=== PATIENT | female | born 1980 | race Caucasian/White ===

== ENCOUNTER 2018-01-01 02:21 | Emergency (ER) | payer SELFPAY ==
--- OUTSIDE RECORDS SUMMARY | 2018-01-01 02:23 | XMS REPORT ---
:1980 [facility] Address [address] [place] [address] [place] [id number] Care Team Providers Name Role Phone MS ELLIOT ASCENCIO Unavailable Unavailable Problems This patient has no known problems. Allergies, Adverse Reactions, Alerts This patient has no known allergies or adverse reactions. Medications This patient has no known medications. Encounters Start End Encounter Admission Attending Care Care Encounter Date/Time Date/Time Type Type Clinicians Facility Department ID 2017-08-03 2017-08-03 Anjelica E THAI ASCENCIO [facility] [id number] 18:21:00 19:21:00 ELLIOT
[2018-01-01] MEDS ORDERED: IBUPROFEN 400 MG TAB ONE (03:16)
[2018-01-01] MEDS ORDERED: LORAZEPAM 1 MG TABLET ONE (03:16)
--- NOTE | 2018-01-01 03:28 | EDPHYS ---
Physician Documentation [facility] Name: Sandhya Elder Age: 37 yrs Sex: Female : 1980 Arrival Date: 01/01/2018 Time: :23 Bed 18 Private MD: ED Physician Jackeline Carrion HPI: 01/01 03:03 This 37 yrs old Female presents to ER via Ambulatory with complaints of ma2 Shoulder Pain, Anxiety. 03:03 The patient or guardian complains of pain. left shoulder and left trapezius. Context: ma2 The problem was sustained at home. Onset: The symptoms/episode began/occurred gradually, 2 day(s) ago. Modifying factors: the symptoms are alleviated by nothing. The symptoms are aggravated by movement. Associated signs and symptoms: Pertinent negatives: abdominal pain, chest pain, diaphoresis, dyspnea. Severity of symptoms: At their worst the symptoms were moderate. 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 - Social history:: Smoking status: Patient/guardian denies using tobacco, Patient/guardian denies using alcohol, street drugs, The patient lives with family. - Ebola Screening: : No symptoms or risks identified at this time. - Family history:: not pertinent, pertinent for. - Hospitalizations: : No recent hospitalization is reported. ROS: 03:03 Constitutional: Negative for fever, chills, and weight loss. ma2 03:03 MS/extremity: Positive for pain, Negative for acute changes, injury or acute deformity, bite, contusion, puncture, swelling, tenderness. 03:03 All other systems are negative. Exam: 03:03 Constitutional: This is a well developed, well nourished patient who is awake, alert, ma2 and in no acute distress. Chest/axilla: Normal chest wall appearance and motion. Nontender with no deformity. No lesions are appreciated. Cardiovascular: Regular rate and rhythm with a normal S1 and S2. No gallops, murmurs, or rubs. Normal PMI, no JVD. No pulse deficits. Respiratory: Lungs have equal breath sounds bilaterally, clear to auscultation and percussion. No rales, rhonchi or wheezes noted. No increased work of breathing, no retractions or nasal flaring. Abdomen/GI: Soft, non-tender, with normal bowel sounds. No distension or tympany. No guarding or rebound. No evidence of tenderness throughout. 03:03 Musculoskeletal/extremity: tenderness over suprascapularis on left . Vital Signs: 02:45 BP 173 / 111; Pulse 76; Resp 18 S; Temp 98.1(O); Pulse Ox 100% on R/A; Weight 82.1 kg bb (R); Height 5 ft. 4 in. (162.56 cm) (R); Pain 7/10; 03:20 BP 168 / 109; Pulse 75; Resp 17 S; Pulse Ox 100% on R/A; cc3 02:45 Body Mass Index 31.07 (82.10 kg, 162.56 cm) bb MDM: 02:30 Patient medically screened. ma2 03:03 Differential diagnosis: DJD, tendonitis, msk pain. ma2 03:26 Data reviewed: vital signs, nurses notes, [facility] records, EKG. Counseling: I had ma2 a detailed discussion with the patient and/or guardian regarding: the historical points, exam findings, and any diagnostic results supporting the discharge/admit diagnosis, the presence of at least one elevated blood pressure reading (>120/80) during this emergency department visit, the need for outpatient follow up. Response to treatment: the patient's symptoms have markedly improved after treatment. 01/01 03:01 Order name: EKG; Complete Time: 03:02 ma2 Administered Medications: 03:14 Drug: Ativan 1 mg Route: PO; ea 03:40 Follow up: Response: No adverse reaction; Anxiety decreased cc3 03:14 Drug: Motrin 400 mg Route: PO; ea 03:40 Follow up: Response: No adverse reaction; Pain is decreased cc3 Disposition: 01/01/18 03:28 Discharged to Home. Impression: Pain in left shoulder. - Condition is Stable. - Discharge Instructions: Musculoskeletal Pain. - Prescriptions for Ativan 1 mg Oral Tablet - take 1 tablet by ORAL route every 8 hours As needed; 10 tablet. Tylenol- Codeine #3 300-30 mg Oral Tablet - take 2 tablet by ORAL route every 6 hours As needed; 30 tablet. Cyclobenzaprine 5 mg Oral Tablet - take 1 tablet by ORAL route 3 times per day As needed; 15 tablet. - Medication Reconciliation Form, Thank You Letter, Antibiotic Education, Prescription Opioid Use form. - Follow up: Private Physician; When: Tomorrow; Reason: Continuance of care. Signatures: Rebecca Chaney RN RN bb Antunez, Elena, RN RN ea Alzahri, Mohammad, MD MD ma2 Lindy Wolfe cc3 Corrections: (The following items were deleted from the chart) 03:43 03:28 01/01/2018 03:28 Discharged to Home. Impression: Pain in left shoulder. Condition cc3 is Stable. Forms are Medication Reconciliation Form, Thank You Letter, Antibiotic Education, Prescription Opioid Use. Follow up: Private Physician; When: Tomorrow; Reason: Continuance of care. ma2
--- NOTE | 2018-01-01 03:28 | ER ---
Nurse's Notes [facility] Name: Sandhya Elder Age: 37 yrs Sex: Female : 1980 Arrival Date: 01/01/2018 Time: :23 Bed 18 Private MD: Diagnosis: Pain in left shoulder Presentation: 01/01 02:42 Presenting complaint: Patient states: she has anxiety really bad which makes her blood bb pressure high and it is worse in hospitals pt c/o left shoulder x 1 week which woke her up this morning does not recall any trauma to her left shoulder. Transition of care: patient was not received from another setting of care. Onset of symptoms was December 24, 2017. Risk Assessment: Do you want to hurt yourself or someone else? Patient reports no desire to harm self or others. Initial Sepsis Screen: Does the patient meet any 2 criteria? No. Patient's initial sepsis screen is negative. Does the patient have a suspected source of infection? No. Patient's initial sepsis screen is negative. Care prior to arrival: None. 02:42 Method Of Arrival: Ambulatory bb 02:42 Acuity: MARYCARMEN 4 bb Triage Assessment: 02:45 General: Appears in no apparent distress. comfortable, Behavior is calm, cooperative, cc3 appropriate for age. Pain: Complains of pain in left trapezius and left shoulder. 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 - Social history:: Smoking status: Patient/guardian denies using tobacco, Patient/guardian denies using alcohol, street drugs, The patient lives with family. - Ebola Screening: : No symptoms or risks identified at this time. - Family history:: not pertinent, pertinent for. - Hospitalizations: : No recent hospitalization is reported. Screenin:45 Abuse screen: Denies threats or abuse. Denies injuries from another. Nutritional cc3 screening: No deficits noted. Tuberculosis screening: No symptoms or risk factors identified. Fall Risk Ambulatory Aid- None/Bed Rest/Nurse Assist (0 pts). Gait- Normal/Bed Rest/Wheelchair (0 pts) Mental Status- Oriented to own ability (0 pts). Assessment: 03:40 Reassessment: Patient appears in no apparent distress at this time. Patient and/or cc3 family updated on plan of care and expected duration. Pain level reassessed. Patient is alert, oriented x 3, equal unlabored respirations, skin warm/dry/pink. Dr. Carrion discharged the patient home with prescription given. No IV cannula in situ. Patient left ER vitally stable and ambulatory. Vital Signs: 02:45 BP 173 / 111; Pulse 76; Resp 18 S; Temp 98.1(O); Pulse Ox 100% on R/A; Weight 82.1 kg bb (R); Height 5 ft. 4 in. (162.56 cm) (R); Pain 7/10; 03:20 BP 168 / 109; Pulse 75; Resp 17 S; Pulse Ox 100% on R/A; cc3 02:45 Body Mass Index 31.07 (82.10 kg, 162.56 cm) ED Course: 02:23 Patient arrived in ED. am2 02:30 Jackeline Carrion MD is Attending Physician. ma2 02:44 Triage completed. bb 02:45 Arm band placed on. bb 02:45 Patient has correct armband on for positive identification. Bed in low position. Call cc3 light in reach. Side rails up X 1. Pulse ox on. NIBP on. 03:04 Ivonne Weiss, YOVANI is Primary Nurse. ea 03:40 No provider procedures requiring assistance completed. Patient did not have IV access cc3 during this emergency room visit. Administered Medications: 03:14 Drug: Ativan 1 mg Route: PO; ea 03:40 Follow up: Response: No adverse reaction; Anxiety decreased cc3 03:14 Drug: Motrin 400 mg Route: PO; ea 03:40 Follow up: Response: No adverse reaction; Pain is decreased cc3 Outcome: 03:28 Discharge ordered by . ma2 03:40 Discharged to home ambulatory. cc3 03:40 Condition: stable 03:40 Discharge instructions given to patient, Instructed on discharge instructions, follow up and referral plans. medication usage, Demonstrated understanding of instructions, follow-up care, medications, Prescriptions given X 3. 03:43 Patient left the ED. cc3 Signatures: Rebecca Chaney RN RN Keya Pretty am2 Ivonne Weiss RN RN ea Jackeline Carrion MD MD ma2 Lindy Wolfe 3
--- NOTE | 2018-01-01 06:07 | EKG ---
Test Date: 2018-01-01 Test Time: 03:24:45 Bog Cutter: AG3 MEASUREMENT RESULTS: Intervals: Rate: 70 OR: 158 QRSD: 96 QT: 404 QTc: 436 [place]: P: 37 OR: 158 QRS: 11 T: 8 INTERPRETIVE STATEMENTS: Normal sinus rhythm Minimal voltage criteria for LVH, may be normal variant Borderline ECG No previous ECG available for comparison Electronically Signed On 01-01-18 06:06:45 WILDLIFE ECOLOGY PROFESSOR by Clayton Naranjo
== END 2018-01-01 03:43 | disposition home or self-care (01) ==
LOC: ER 02:21
DX: M25.512 Pain in left shoulder (principal)
CPT/HCPCS: 93005; 99283